=== PATIENT | female | born 1995 | race Caucasian/White ===

== ENCOUNTER 2018-04-11 00:54 | Emergency (ER) | payer OTHER ==
[~2018-04-11] VITALS: Ht 170.2 cm; Wt 77.1 kg
[2018-04-11 01:29] LABS: ABSOLUTE NEUTROPHILS 10.1 thou/uL (1.4-8.2); BASOPHILS 0.7 % (0.0-2.0); HEMATOCRIT 41.9 % (37.0-47.0); HEMOGLOBIN 13.8 gm/dL (12.0-15.0); LYMPHOCYTES 10.4 % (24.0-44.0); MCH 26.6 pg (26.0-34.0); MCHC 32.9 g/dL (28.0-37.0); MCV 81.1 fL (80.0-100.0); MONOCYTES 2.5 % (1.0-8.0); PLATELET COUNT 314 thou/uL (150-400); POLYS 86.4 % (36.0-66.0); RBC 5.16 mil/uL (4.20-5.00); RDW 15.1 % (10.5-14.5); WBC 11.7 thou/uL (4.0-11.0)
[2018-04-11 01:35] LABS: URINE BILIRUBIN 1+ (Negative); URINE BLOOD NEGATIVE (Negative); URINE CLARITY CLEAR; URINE COLOR YELLOW; URINE GLUCOSE-RANDOM* NEGATIVE (Negative); URINE KETONES 2+ (Negative); URINE NITRITE-REFLEX NEGATIVE (Negative); URINE PROTEIN (DIPSTICK) TRACE (Negative)
[2018-04-11 01:39] LABS: ANION GAP 15 mmol/L (7-16); BUN 7 mg/dL (7-18); CALCIUM 9.5 mg/dL (8.5-10.1); CHLORIDE 99 mmol/L (98-107); CO2 23 mmol/L (21-32); CREATININE 0.7 mg/dL (0.6-1.0); GLUCOSE 131 mg/dL (74-106); SODIUM 137 mmol/L (136-145)
[2018-04-11 01:44] LABS: AMP/METHAMP Negative (Negative); BARBITURATES Negative (Negative); BENZODIAZEPINES Negative (Negative); COCAINE Negative (Negative); METHADONE Negative (Negative); OPIATES Negative (Negative); PCP Negative (Negative)
[2018-04-11 01:44] LABS: ALBUMIN 4.2 g/dL (3.4-5.0); DIRECT BILIRUBIN < 0.1 mg/dL (<0.1-0.3); LIPASE 89 U/L (73-393); SGOT 25 U/L (15-37); SGPT 19 U/L (30-65); TOTAL BILIRUBIN 0.7 mg/dL (<0.1-1.0); TOTAL PROTEIN 8.3 g/dL (6.4-8.2)
[2018-04-11 01:45] LABS: POTASSIUM 3.7 mmol/L (3.5-5.1)
[2018-04-11 01:54] LABS: URINE LEUKOCYTES-REFLEX 3+ (Negative)
[2018-04-11 01:55] LABS: ICTOTEST (BILI CONFIRMATORY) Positive (Negative)
[2018-04-11 02:18] LABS: BACTERIA-REFLEX 1-9 Few /HPF (None Seen); CASTS None Seen /LPF (None Seen); MUCUS 0-3 Light strn/LPF (None Seen); SQUAMOUS >10 Many /LPF (0-3); URINE RBC 0-2 Rare /HPF (0-2)
[2018-04-11 02:19] LABS: CRYSTALS None Seen /LPF (None Seen); URINE WBC-REFLEX 0-5 Rare /HPF (0-5)
[2018-04-11 02:52] LABS: LARGE PLATELETS RARE; POLYCHROMASIA OCCASIONAL
[2018-04-11] MEDS ORDERED: MIRALAX17 GM PO (06:57)
[2018-04-11] MEDS ORDERED: VITAMIN D1000 UNI1 PO (06:58)
[2018-04-11 08:39] VITALS: BP 127/84
== END 2018-04-11 08:41 | disposition short-term general hospital (02) ==
LOC: ER 00:54
PROVIDERS: Emergency Medicine
DX: O21.1 Hyperemesis gravidarum with metabolic disturbance (principal); F11.10 Opioid abuse, uncomplicated; R82.4 Acetonuria; Z3A.01 Less than 8 weeks gestation of pregnancy

== ENCOUNTER 2018-05-13 15:23 | Emergency (ER) | payer OTHER ==
[~2018-05-13] VITALS: Ht 170.2 cm; Wt 77.1 kg
[~2018-05-13 15:23] MED LIST: MIRALAX17 GM PO; VITAMIN D1000 UNI1 PO
[2018-05-13 15:39] LABS: URINE BLOOD NEGATIVE (Negative); URINE CLARITY CLEAR; URINE COLOR YELLOW; URINE GLUCOSE-RANDOM* NEGATIVE (Negative); URINE KETONES 3+ (Negative); URINE LEUKOCYTES-REFLEX NEGATIVE (Negative); URINE NITRITE-REFLEX NEGATIVE (Negative); URINE PROTEIN (DIPSTICK) NEGATIVE (Negative)
[2018-05-13 15:43] LABS: ICTOTEST (BILI CONFIRMATORY) Negative (Negative); URINE BILIRUBIN NEGATIVE (Negative)
[2018-05-13 15:44] LABS: URINE REDUCING SUBSTANCE NEGATIVE
[2018-05-13 15:47] LABS: AMP/METHAMP Negative (Negative); BARBITURATES Negative (Negative); BENZODIAZEPINES Negative (Negative); COCAINE Negative (Negative); METHADONE Negative (Negative); OPIATES POSITIVE (Negative); PCP Negative (Negative)
[2018-05-13 15:56] LABS: ABSOLUTE NEUTROPHILS 5.6 thou/uL (1.4-8.2); BASOPHILS 0.9 % (0.0-2.0); EOSINOPHILS 0.2 % (0.0-3.0); HEMATOCRIT 39.6 % (37.0-47.0); HEMOGLOBIN 12.9 gm/dL (12.0-15.0); LYMPHOCYTES 18.6 % (24.0-44.0); MCHC 32.5 g/dL (28.0-37.0); MCV 80.1 fL (80.0-100.0); MONOCYTES 4.7 % (1.0-8.0); PLATELET COUNT 304 thou/uL (150-400); POLYS 75.6 % (36.0-66.0); RBC 4.95 mil/uL (4.20-5.00); RDW 15.4 % (10.5-14.5); WBC 7.5 thou/uL (4.0-11.0)
[2018-05-13 16:01] LABS: CALCIUM 9.1 mg/dL (8.5-10.1); CREATININE 0.6 mg/dL (0.6-1.0); POTASSIUM 3.4 mmol/L (3.5-5.1)
[2018-05-13 16:05] LABS: ALBUMIN 3.9 g/dL (3.4-5.0); TOTAL BILIRUBIN 0.6 mg/dL (<0.1-1.0); TOTAL PROTEIN 7.7 g/dL (6.4-8.2)
[2018-05-13] MEDS ORDERED: CARAFATE1 GM PO (17:30)
[2018-05-13] MEDS ORDERED: PROTONIX40 M4 PO (17:30)
[2018-05-13] MEDS ORDERED: ULTRAM 50MG TAB50 MG PO (17:30)
[2018-05-13] MEDS ORDERED: ZOFRAN ODT4 MG PO (17:30)
[2018-05-13] MEDS ORDERED: REGLAN 10 MG TA10 MG PO (17:30)
[2018-05-13 18:08] VITALS: BP 110/66
== END 2018-05-13 18:14 | disposition home or self-care (01) ==
LOC: ER 15:23
PROVIDERS: Emergency Medicine
DX: F12.188 Cannabis abuse with other cannabis-induced disorder (principal); K29.70 Gastritis, unspecified, without bleeding; K21.9 Gastro-esophageal reflux disease without esophagitis

== ENCOUNTER 2018-05-17 07:40 | Emergency (ER) | payer OTHER ==
[~2018-05-17] VITALS: Ht 170.2 cm; Wt 77.1 kg
[~2018-05-17 07:40] MED LIST changes: +CARAFATE1 GM PO; +PROTONIX40 M4 PO; +REGLAN 10 MG TA10 MG PO; +ULTRAM 50MG TAB50 MG PO; +ZOFRAN ODT4 MG PO
[2018-05-17 08:06] LABS: URINE BILIRUBIN NEGATIVE (Negative); URINE BLOOD NEGATIVE (Negative); URINE CLARITY CLEAR; URINE COLOR YELLOW; URINE GLUCOSE-RANDOM* NEGATIVE (Negative); URINE KETONES NEGATIVE (Negative); URINE LEUKOCYTES-REFLEX 1+ (Negative); URINE NITRITE-REFLEX NEGATIVE (Negative); URINE PROTEIN (DIPSTICK) NEGATIVE (Negative); URINE SPECIFIC GRAVITY 1.025 (1.005-1.035); URINE UROBILINOGEN 0.2 E.U./dl (0.2-1.0)
[2018-05-17 08:14] LABS: CASTS None Seen /LPF (None Seen); SQUAMOUS >10 Many /LPF (0-3)
[2018-05-17 08:15] LABS: URINE WBC-REFLEX 6-15 Few /HPF (0-5)
[2018-05-17 08:16] LABS: CRYSTALS None Seen /LPF (None Seen); URINE RBC None Seen /HPF (0-2)
[2018-05-17 08:23] LABS: ABSOLUTE NEUTROPHILS 10.2 thou/uL (1.4-8.2); BASOPHILS 0.6 % (0.0-2.0); HEMATOCRIT 39.7 % (37.0-47.0); HEMOGLOBIN 12.8 gm/dL (12.0-15.0); LYMPHOCYTES 12.7 % (24.0-44.0); MCHC 32.2 g/dL (28.0-37.0); MCV 80.7 fL (80.0-100.0); MONOCYTES 5.3 % (1.0-8.0); PLATELET COUNT 273 thou/uL (150-400); POLYS 80.4 % (36.0-66.0); RBC 4.92 mil/uL (4.20-5.00); RDW 15.2 % (10.5-14.5); WBC 12.7 thou/uL (4.0-11.0)
[2018-05-17 08:27] LABS: CALCIUM 8.7 mg/dL (8.5-10.1); CREATININE 0.6 mg/dL (0.6-1.0); POTASSIUM 4.4 mmol/L (3.5-5.1)
[2018-05-17 08:33] LABS: ALBUMIN 3.5 g/dL (3.4-5.0); TOTAL BILIRUBIN 0.3 mg/dL (<0.1-1.0); TOTAL PROTEIN 7.3 g/dL (6.4-8.2)
[2018-05-17] MEDS ORDERED: KEFLEX500 M1 PO (11:18)
[2018-05-17] MEDS ORDERED: REGLAN 10 MG TA10 MG PO (11:18)
[2018-05-17] MEDS ORDERED: ERYTHROMYCIN250 MG PO (11:18)
[2018-05-17 11:28] VITALS: BP 130/73
[2018-05-18] MEDS ORDERED: ZOFRAN4 MG PO (02:12)
== END 2018-05-17 11:29 | disposition home or self-care (01) ==
LOC: ER 07:40
PROVIDERS: Emergency Medicine
DX: N39.0 Urinary tract infection, site not specified (principal); Z90.49 Acquired absence of other specified parts of digestive tract; R11.2 Nausea with vomiting, unspecified

== ENCOUNTER 2018-05-17 22:31 | Emergency (ER) | payer OTHER ==
[~2018-05-17] VITALS: Ht 167.6 cm; Wt 72.6 kg
[~2018-05-17 22:31] MED LIST changes: +ERYTHROMYCIN250 MG PO; +KEFLEX500 M1 PO
[2018-05-18 00:17] LABS: ABSOLUTE NEUTROPHILS 6.4 thou/uL (1.4-8.2); BASOPHILS 0.7 % (0.0-2.0); EOSINOPHILS 0.1 % (0.0-3.0); HEMATOCRIT 38.9 % (37.0-47.0); LYMPHOCYTES 11.8 % (24.0-44.0); MCH 26.7 pg (26.0-34.0); MCHC 33.5 g/dL (28.0-37.0); MCV 79.6 fL (80.0-100.0); MONOCYTES 2.2 % (1.0-8.0); PLATELET COUNT 254 thou/uL (150-400); POLYS 85.2 % (36.0-66.0); RBC 4.89 mil/uL (4.20-5.00); RDW 15.3 % (10.5-14.5); WBC 7.5 thou/uL (4.0-11.0)
[2018-05-18 00:25] LABS: CALCIUM 9.1 mg/dL (8.5-10.1); CREATININE 0.5 mg/dL (0.6-1.0); POTASSIUM 3.8 mmol/L (3.5-5.1)
[2018-05-18] MEDS ORDERED: ZOFRAN4 MG PO (02:12)
[2018-05-18 02:36] VITALS: BP 124/80
== END 2018-05-18 02:38 | disposition home or self-care (01) ==
LOC: ER 22:31
PROVIDERS: Student in an Organized Health Care Education/Training Program
DX: R10.13 Epigastric pain (principal); G89.29 Other chronic pain; R11.2 Nausea with vomiting, unspecified; Z90.49 Acquired absence of other specified parts of digestive tract

== ENCOUNTER 2018-08-24 07:48 | Emergency (ER) | payer OTHER ==
[~2018-08-24] VITALS: Ht 170.2 cm; Wt 81.7 kg
[~2018-08-24 07:48] MED LIST changes: +ZOFRAN4 MG PO
[2018-08-24 08:38] LABS: HEMATOCRIT 38.7 % (37.0-47.0); HEMOGLOBIN 12.6 gm/dL (12.0-15.0); MCH 26.8 pg (26.0-34.0); MCHC 32.5 g/dL (28.0-37.0); MCV 82.4 fL (80.0-100.0); RBC 4.7 mil/uL (4.20-5.00); WBC 6.8 thou/uL (4.0-11.0)
[2018-08-24] MEDS ORDERED: ZOFRAN ODT4 MG PO (11:14)
[2018-08-24] MEDS ORDERED: NORCO 5-325 TA1 EACH PO (11:14)
[2018-08-24 11:35] VITALS: BP 108/76
--- NOTE | 2018-08-28 13:12 | PATH ---
[facility] [address] [address] PATHOLOGY RPT PROCEDURE Name: LAZARA SIMON Room #: DEP DONALD Dean#: [id number] ������������������ Admission: 08/24/18 ������������������ Date of : 89 Discharge: 08/24/18 Report #: [id number] Path Case #: [id number] [facility] Accession Number: [id number] . 01 Material submitted: . VAGINAL, EVALUATE FOR PRODUCTS OF CONCEPTION . 01 Clinical history: . Vaginal bleeding. . 02 Diagnosis: Tissue designated as, "vaginal": - Specimen predominantly (90%) comprised of blood and elements of peripheral blood. 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 . (IUV:mml; 08/25/2018) QLM/08/28/2018 . 02 Comment: Inhibin immunohistochemical stain is performed on block A1 and shows strong reactivity within the multinucleated cells identified. CD68 immunohistochemical stain performed on block A1 is nonreactive within these cells. 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 Lack of intact chorionic villi as well as decidua may likely be due to an already passed abortus. Please correlate clinically with beta-hCG levels as well as clinically. . (IUV:mml; 08/25/2018) . 02 Electronically signed: . Jaclyn Broussard MD, Pathologist NPI- [id number] . 01 Gross description: . Received in formalin labeled "Lazara Simon". The container is not labeled with the specimen site. Per the requisition, the specimen site is "vaginal, evaluate for products of conception". The specimen is a 3.2 x 2.5 x 1.2 cm aggregate of red-brown clotted blood material. No placental tissue or parts are grossly identified. The specimen is serially sectioned and submitted entirely in cassettes A1-A3. ([facility] [place]; 08/24/2018) SY/SYC . 02 Pathologist provided ICD-10: N93.9 [place] [id number] PATHOLOGY RPT PROCEDURE Name: LAZARA SIMON Room #: DEP Jermaine#: [id number] ������������������ Admission: 08/24/18 ������������������ Date of : [birth year] Discharge: 08/24/18 Report #: [id number] Path Case #: [id number] . 02 CPT . [id number], [id number], [id number] Specimen Comment: A courtesy copy of this report has been sent to Specimen Comment: [phone]. Specimen Comment: Report sent to Performed at: [address], [place], [place] [id number] MD Thor Wyatt MD Phone: [phone] Performed at: [address] [id number] MD Jaclyn Broussard MD Phone: [phone]
== END 2018-08-24 11:47 | disposition home or self-care (01) ==
LOC: ER 07:48
PROVIDERS: Emergency Medicine
DX: O03.9 Complete or unspecified spontaneous abortion without complication (principal); Z90.49 Acquired absence of other specified parts of digestive tract

== ENCOUNTER 2019-01-02 09:03 | Emergency (ER) | payer OTHER ==
[~2019-01-02] VITALS: Ht 170.2 cm; Wt 86.2 kg
[~2019-01-02 09:03] MED LIST changes: +NORCO 5-325 TA1 EACH PO; +PHENERGAN 25 MG25 M1 PO
[2019-01-02 09:26] LABS: ABSOLUTE NEUTROPHILS 9.2 thou/uL (1.4-8.2); BASOPHILS 0.5 % (0.0-2.0); EOSINOPHILS 0.1 % (0.0-3.0); HEMATOCRIT 45.4 % (37.0-47.0); HEMOGLOBIN 15.2 gm/dL (12.0-15.0); LYMPHOCYTES 8.5 % (24.0-44.0); MCH 27.7 pg (26.0-34.0); MCHC 33.5 g/dL (28.0-37.0); MCV 82.7 fL (80.0-100.0); MONOCYTES 1.4 % (1.0-8.0); PLATELET COUNT 273 thou/uL (150-400); POLYS 89.5 % (36.0-66.0); RBC 5.49 mil/uL (4.20-5.00); RDW 16.5 % (10.5-14.5); WBC 10.3 thou/uL (4.0-11.0)
[2019-01-02 09:30] LABS: CALCIUM 9.9 mg/dL (8.5-10.1); CREATININE 0.6 mg/dL (0.6-1.0); POTASSIUM 4.1 mmol/L (3.5-5.1)
[2019-01-02 09:36] LABS: ALBUMIN 4.3 g/dL (3.4-5.0); TOTAL BILIRUBIN 0.5 mg/dL (<0.1-1.0)
[2019-01-02] MEDS ORDERED: ZOFRAN ODT4 MG PO (13:02)
[2019-01-02 13:18] VITALS: BP 116/79
== END 2019-01-02 13:18 | disposition home or self-care (01) ==
LOC: ER 09:03
PROVIDERS: Emergency Medicine
DX: K52.9 Noninfective gastroenteritis and colitis, unspecified (principal); F12.10 Cannabis abuse, uncomplicated

== ENCOUNTER 2019-04-23 12:08 | Inpatient (IN) | payer OTHER ==
[~2019-04-23] VITALS: Ht 170.2 cm; Wt 88.5 kg
[2019-04-23 12:08] VITALS: BP 133/65
[2019-04-23 13:24] LABS: ABSOLUTE NEUTROPHILS 5.4 thou/uL (1.4-8.2); BASOPHILS 1.2 % (0.0-2.0); EOSINOPHILS 0.6 % (0.0-3.0); HEMATOCRIT 44.5 % (37.0-47.0); HEMOGLOBIN 14.8 gm/dL (12.0-15.0); LYMPHOCYTES 24.3 % (24.0-44.0); MCH 28.2 pg (26.0-34.0); MCHC 33.2 g/dL (28.0-37.0); MCV 84.8 fL (80.0-100.0); MONOCYTES 7.2 % (1.0-8.0); PLATELET COUNT 285 thou/uL (150-400); POLYS 66.7 % (36.0-66.0); RBC 5.25 mil/uL (4.20-5.00); RDW 14.1 % (10.5-14.5); WBC 8.1 thou/uL (4.0-11.0)
[2019-04-23 13:35] LABS: ALBUMIN 4.2 g/dL (3.4-5.0); CALCIUM 9.4 mg/dL (8.5-10.1); CREATININE 0.9 mg/dL (0.6-1.0); TOTAL BILIRUBIN 0.7 mg/dL (<0.1-1.0); TOTAL PROTEIN 8.3 g/dL (6.4-8.2)
[2019-04-23 13:37] LABS: POTASSIUM 2.9 mmol/L (3.5-5.1)
[2019-04-23 13:40] LABS: URINE BLOOD NEGATIVE (Negative); URINE CLARITY CLOUDY; URINE COLOR YELLOW; URINE GLUCOSE-RANDOM* NEGATIVE (Negative); URINE KETONES NEGATIVE (Negative); URINE LEUKOCYTES-REFLEX TRACE (Negative); URINE NITRITE-REFLEX NEGATIVE (Negative); URINE PROTEIN (DIPSTICK) TRACE (Negative)
[2019-04-23 13:44] LABS: ICTOTEST (BILI CONFIRMATORY) Negative (Negative); URINE BILIRUBIN NEGATIVE (Negative)
[2019-04-23 14:57] LABS: AMP/METHAMP Negative (Negative); BARBITURATES Negative (Negative); BENZODIAZEPINES Negative (Negative); COCAINE Negative (Negative); METHADONE Negative (Negative); OPIATES Negative (Negative); PCP Negative (Negative)
[2019-04-23 17:08] VITALS: BP 113/85
[2019-04-23 17:27] VITALS: BP 95/47
--- NOTE | 2019-04-23 18:26 | NUR ---
ASSUMED CARE OF THE PT AT 1750. PT IS ASLEEP BUT COMPLAINS OF PAIN SCORE OUT 9 OUT OF 10. NO PAIN MEDICATION GIVEN BECAUSE PT FELL ASLEEP WHILE TALKING. PT IS AMBULATORY. PTS POTASSIUM LEVELS ARE 2.9, POTASSIUM DRIP IS RUNNING, FROM ER. BED IS IN THE LOWEST POSITION, CALL LIGHT IS WITHIN REACH AND FALL PRECAUTIONS ARE IN PLACE DUE TO PTS DROWSINESS. WILL CONTINUE TO MONITOR PT UNTIL NOC NURSE RECEIVES REPORT.
[2019-04-23 19:44] VITALS: BP 117/69
[2019-04-24 03:45] VITALS: BP 90/45
--- NOTE | 2019-04-24 06:01 | NUR ---
PT AOX4. PT LETHARGIC, EASILY AROUSABLE. NO REPORTS OF PAIN. PT REPORTS EPISODES OF NAUSEA. CURRENTLY TAKING PRN ZOFRAN Q4HR. NO EPISODES OF VOMITING. PT REPORTS RELUCTANCE IN TAKING IV POTASSIUM SUPPLEMENT SHE HAS INTERMITTENT DISCOMFORT. PT PROVIDED ALTERNATE OPTIONS, PT REPORTS RELUCTANCE IN TAKING PO OR IV POTASSIUM SUPPLEMENT. PT REPORTS SHE WILL EAT A LOT OF BANANAS. IV SITE ASSESSED, NO EDEMA OR REDNESS NOTED. ENCOURAGED TO NOTIFY STAFF FOR ALL NEEDS. CALL LIGHT WITHIN REACH, BED ALARMS ON, BED IN LOWEST POSITION. WILL CONTINUE TO MONITOR.
[2019-04-24 07:56] VITALS: BP 100/52
[2019-04-24 11:17] VITALS: BP 100/52
--- NOTE | 2019-04-24 11:57 | NUR ---
Assumed care of patient 0700. Pt AOx4, no c/o nausea or vomiting. Pt is tolaterating crackers and clear liquid. Pt reports she is not hungry at this time. Pt had BM yesterday and no c/o pain. Pt up ad grey to restroom. IV fluids discont, IV removed for discharge home. Pt belongings were packed and sent home with pt. Pt transported out by staff to go home.
[2019-04-25] MEDS ORDERED: ZOFRAN ODT4 MG PO (12:57)
== END 2019-04-24 11:41 | disposition home or self-care (01) | DRG 392 ==
LOC: ER 12:08 → EROBS 15:54 → 4S 17:29
PROVIDERS: Physician Assistant; ADMIT Hospitalist
DX: K52.9 Noninfective gastroenteritis and colitis, unspecified (principal); F12.188 Cannabis abuse with other cannabis-induced disorder; E87.6 Hypokalemia; Z90.49 Acquired absence of other specified parts of digestive tract; Z79.899 Other long term (current) drug therapy
CPT/HCPCS: 10195

== ENCOUNTER 2019-04-26 16:21 | Emergency (ER) | payer OTHER ==
[~2019-04-26] VITALS: Ht 170.2 cm; Wt 81.7 kg
[2019-04-26 16:42] LABS: URINE BLOOD NEGATIVE (Negative); URINE CLARITY CLEAR; URINE COLOR YELLOW; URINE GLUCOSE-RANDOM* NEGATIVE (Negative); URINE KETONES 1+ (Negative); URINE NITRITE-REFLEX NEGATIVE (Negative); URINE PROTEIN (DIPSTICK) NEGATIVE (Negative)
[2019-04-26 16:43] LABS: URINE LEUKOCYTES-REFLEX 1+ (Negative)
[2019-04-26 16:45] LABS: ICTOTEST (BILI CONFIRMATORY) Negative (Negative); URINE BILIRUBIN NEGATIVE (Negative)
[2019-04-26 16:56] LABS: AMP/METHAMP Negative (Negative); BARBITURATES Negative (Negative); BENZODIAZEPINES Negative (Negative); COCAINE Negative (Negative); METHADONE Negative (Negative); OPIATES Negative (Negative); PCP Negative (Negative)
[2019-04-26 17:03] LABS: SQUAMOUS >10 Many /LPF (0-3)
[2019-04-26 17:04] LABS: CASTS None Seen /LPF (None Seen); URINE RBC None Seen /HPF (0-2); URINE WBC-REFLEX 6-15 Few /HPF (0-5)
[2019-04-26 17:05] LABS: CRYSTALS None Seen /LPF (None Seen)
[2019-04-26 17:06] LABS: BACTERIA-REFLEX 1-9 Few /HPF (None Seen)
[2019-04-26 17:21] LABS: HEMATOCRIT 41.2 % (37.0-47.0); HEMOGLOBIN 13.6 gm/dL (12.0-15.0); MCHC 32.9 g/dL (28.0-37.0); RBC 4.84 mil/uL (4.20-5.00); RDW 13.9 % (10.5-14.5); WBC 16.4 thou/uL (4.0-11.0)
[2019-04-26 17:28] LABS: CALCIUM 9.5 mg/dL (8.5-10.1); CREATININE 0.8 mg/dL (0.6-1.0); POTASSIUM 3.3 mmol/L (3.5-5.1)
[2019-04-26 20:10] VITALS: BP 140/78
== END 2019-04-26 20:11 | disposition still patient (30) ==
LOC: ER 16:21
PROVIDERS: Emergency Medicine
DX: R11.2 Nausea with vomiting, unspecified (principal); R10.84 Generalized abdominal pain; R82.4 Acetonuria; Z90.49 Acquired absence of other specified parts of digestive tract; Z76.5 Malingerer [conscious simulation]